=== PATIENT | male | born 1965 | race Caucasian/White ===

== ENCOUNTER → 2022-01-02 | Outpatient (CLI) | payer OTHER ==
[~2022-01-02] MED LIST: NON FORMULARY ITEM IM ONE
--- NOTE | 2022-01-02 12:51 | NUR ---
PATIENT DENIES SHORTNESS OF BREATH, CHEST PAIN, HEADACHE, NAUSEA VOMITING. VITAL SIGNS: B/P 103/64 P 72 RESP. 20 O2 SAT 98% ROOM AIR. DSCHARGED TO HOME WITH INSTRUCTIONS TO CALL 911 IF ANY SHORTNESS OF BREATH OR CHEST PAIN.
== END | disposition home or self-care (01) ==
LOC: OPINF 11:18
PROVIDERS: ATTEND Family Medicine
DX: U07.1 COVID-19 (principal); C90.01 Multiple myeloma in remission
CPT/HCPCS: 96372; M0220